=== PATIENT | male | born 1975 | race Caucasian/White ===

== ENCOUNTER → 2017-10-29 | Outpatient (CLI) | payer MEDICARE, MEDICAID ==
[~2017-10-29] MED LIST: ALLERGY SHOTS; AMO500 PO; AMOX875T60 PO; ASC500 PO; ASCO500C8 PO; AZIT-1 PO; AZIT1PAC21 PO; AZIT500T47 PO; AZIT600T13 PO; CALC-797 PO; CALC400T65 PO; CALC500T76 PO; CEF300 PO; CEFU250 PO; CETY454C2 TP; CLIN25GE TP; CLOT45CR VG; DES5 PO; ERYT30GE12 OP; FERR240T18 PO; FLU20 PO; FLUO-202 PO; GUALA600 PO; HYDR28.415 TP; LEV112 PO; LEV137 PO; LEV500 PO; LOPE1TAB55 PO; LOR10 PO; LORA-802 PO; LORA-941 PO; MOMR; MOMR ENA; OCUSOFT TOP; OLO2ODPT OD; OLOOD OP; OMEP-218 PO; OXYGEN INH; PRAV20TA65 PO; SYSTANODPT OP; TETR-30 PO; TRI05T TOP; VITA-192 PO; VITE400 PO; [UNRECOGNIZED DRUG - CODE] IR; [UNRECOGNIZED DRUG - CODE] PO; [UNRECOGNIZED DRUG - CODE] TP; [UNRECOGNIZED DRUG - CODE] TP; [UNRECOGNIZED DRUG - CODE] TP
--- NOTE | 2017-10-29 14:53 | RADIOLOGY IMAGING REPORT ---
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 COMPARISON: 04/23/2016. FINDINGS: Cardiomediastinal silhouette and pulmonary vessels within normal limits. There is no focal infiltrate or lobar consolidation. There is no pneumothorax or pleural effusion. No nodule. Upper abdomen is unremarkable. No acute bony abnormality. IMPRESSION: 1. No indication of acute or active disease. Report Dictated By: Mark Cerda at 10/29/2017 2:47 PM Report E-Signed By: Mark Cerda at 10/29/2017 2:49 PM WSN:[id number]
== END ==
LOC: RAD 14:09
PROVIDERS: ATTEND Nurse Practitioner Family
DX: R76.11 Nonspecific reaction to tuberculin skin test without active tuberculosis (principal)
CPT/HCPCS: 71046

== ENCOUNTER → 2018-04-01 | Outpatient (CLI) | payer MEDICARE, MEDICAID ==
--- NOTE | 2018-04-01 12:16 | RADIOLOGY IMAGING REPORT ---
FACILITY: [facility] - [place] PATIENT NAME: Nikita Andrews : 1975 MR: [id number] V: [id number] EXAM DATE: ORDERING PHYSICIAN: NICOLETTE SANABRIA TECHNOLOGIST: Location: [facility] - [place] Patient: Nikita Andrews : 1975 Visit/Account:[id number] Date of Sevice: 04/01/2018 Exam type: SOFT TISSUE NON-SPECIFIC History: Patient describes left-sided chest wall pain laterally with no palpable lump Comparison: None. Findings: The entire left breast was imaged sonographically revealing no abnormality cystic or solid. Several comparison views in the 9:00 position of the right breast were also obtained revealing no abnormality . Clinical follow-up recommended for patient's left chest wall pain IMPRESSION: 1. No sonographic abnormality was identified over the left breast to account for patient's left ches t wall pain. Clinical follow-up recommended if patient's symptoms persist CT may be helpful for furt her evaluation Report Dictated By: Britni Belcher MD at 04/01/2018 12:11 PM Report E-Signed By: Britni Belcher MD at 04/01/2018 12:13 PM WSN:[id number]
== END ==
LOC: US 11:09
PROVIDERS: ATTEND Nurse Practitioner Family
DX: R07.9 Chest pain, unspecified (principal)

== ENCOUNTER 2018-11-05 16:56 | Emergency (ER) | payer MEDICARE, MEDICAID ==
[~2018-11-05 16:56] MED LIST changes: +CLIN30GE15 TP
--- NOTE | 2018-11-05 17:02 | ER Report ---
History and Physical Time Seen By MD: 17:02 (GREG EATON MD) HPI/ROS CHIEF COMPLAINT: Chest pain HISTORY OF PRESENT ILLNESS: Patient is pleasant but somewhat of a poor historian secondary to diagnosis of trisomy 21. 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 The reason for the visit today is that around 4:20 PM today he started developing chest pain with radiation to the jaw and some subjective shortness of breath. Patient does have a history of pericarditis, pneumonia as well as aortic insufficiency in the past. Patient states pain is approximately 6 out of 10 in intensity. He reports some very mild nausea. No history of fevers or coughs. No recent travel or antibiotic use. Patient is a nonsmoker. REVIEW OF SYSTEMS: Constitutional: No fever, no chills. Eyes: No discharge. ENT: No sore throat. Cardiovascular: chest pain, no palpitations. Respiratory: No cough, mild shortness of breath Gastrointestinal: No abdominal pain, no vomiting. Mild nausea Genitourinary: No hematuria. Musculoskeletal: No back pain. Skin: No rashes. Neurological: No headache. (GREG EATON MD) Allergies: Coded Allergies: grass pollen-sweet vernal, standardized (Verified Allergy, Unknown, 11/05/18) acetaminophen (Verified Adverse Reaction, Mild, LIVER PROBLEMS, 11/05/18) ibuprofen (Verified Adverse Reaction, Mild, LIVER PROBLEMS, 11/05/18) Uncoded Allergies: CATS (Allergy, Mild, 09/14/10) MOLDS (Allergy, Mild, 09/14/10) TREES (Allergy, Mild, 09/14/10) WEEDS (Allergy, Mild, 09/14/10) Home Meds Active Scripts Clindamycin Phosphate (CLINDAMYCIN PHOSPHATE) 30 Gm Gel..gram., 1 TARSHA TP DIRECTED for 30 Days, #1 TUBE 2 Refills Prov:GENESIS NAPIER NPC 06/10/18 Amoxicillin (AMOXICILLIN) 875 Mg Tablet, 1 TAB PO Q12H, #14 TAB TAKE ONE TABLET BY MOUTH EVERY 12 HOURS Prov:ROBERTO ROSALES CERTIFIED FIRST ASSISTANT 07/22/15 Reported Medications Esomeprazole Magnesium (NEXIUM) 40 Mg Capsule.dr, 1 CAP PO QDAY, CAP 11/05/18 Eyelid Cleanser Combination #5 (OCUSOFT LID SCRUB) 1 Each Med..pad, 1 EACH TP 11/05/18 Guaifenesin (MUCINEX) 600 Mg Tablet.er, 600 MG PO 11/05/18 Montelukast Sodium (SINGULAIR) 10 Mg Tablet, 1 TAB PO QDAY, TAB 11/05/18 Fluticasone Prop 50 Mcg Ns (FLONASE 50 MCG NS) 16 Gm [place].susp, 2 SPRAYS NS QDAY, BOT 11/05/18 Fluticasone Furoate (Arnuity Ellipta) 50 Mcg Blst.w.dev 11/05/18 Olopatadine (PATADAY) 0.05 Ml Soln, 0.05 ML OD QDAY 07/24/14 Hydrocortisone/Aloe Vera (HYDROCORTISONE 1% OINTMENT) 28 Gm Oint...g., 28 GM TP PRN 07/24/14 Levothyroxine Sodium (LEVOTHYROXINE SODIUM) 0.112 Mg Tab, 0.112 MG PO QDAY, TAB TAKE ONE TABLET BY MOUTH IN THE MORNING ON AN EMPTY STOMACH AT LEAST 30 MINUTES BEFORE FOOD 07/24/14 Ferrous Gluconate (FERROUS GLUCONATE) 240 Mg Tablet, 240 MG PO BID 07/24/14 Erythromycin Base/Ethanol (ERYTHROMYCIN 2% GEL) 30 Gm Gel..gram., 30 GM OP QDAY 07/24/14 Clindamycin Phos/Benzoyl Perox (CLINDAMYCIN-BENZOYL PEROX GEL) 25 Gm Gel..gram., 25 GM TP QDAY 07/24/14 Cetyl Alc/Stearyl Alc/Pg/Sls (CETAPHIL CREAM) 454 Gm Cream..g., 454 GM TP QDAY 07/24/14 Calcium Carbonate/Vitamin D3 (CALCIUM 600 + VIT D CAPLET) 1 Each Tablet, 1 EACH PO QDAY 07/24/14 Loperamide Hcl/Simethicone (IMODIUM MULTI-SYMPTOM REL CPLT) Unknown Strength Tablet, PO PRN 07/24/14 Acetic Acid (ACETIC ACID) 1,000 Ml Irrig.soln, 1000 ML IR BID 07/24/14 Pravastatin Sodium (Pravachol) 20 Mg Tablet, 20 MG PO QHS 12/26/12 Loratadine (Claritin) 10 Mg Tab, 10 MG PO QDAY 08/16/11 Oxygen (Oxygen) 2 L Inha, 2 L INH NOC 09/14/10 Antiseptic Solution (Ocusoft Lid Scrub) 1 Ea Pad, 1 EA TOP QDAY 09/14/10 Vitamin E (Vitamin E) 400 Unit Capsule, 400 UNIT PO BID 09/14/10 Mometasone Furoate (Nasonex) 17 Gm [place], 2 SPRAY NA QDAY SPRAY 2 SPRAYS IN EACH NOSTRIL, USE NEEDED 09/14/10 Fluoxetine Hcl (Prozac) 20 Mg Capsule, 40 MG PO QDAY 09/14/10 Ascorbic Acid (Vitamin C) 500 Mg Tab, 500 MG PO QDAY 09/14/10 Discontinued Reported Medications Omeprazole Magnesium (Prilosec Otc) 20 Mg Tablet.dr, 20 MG PO QDAY 12/26/12 Past Medical/Surgical History Patient has a past medical history Down's syndrome, aortic insufficiency, hypercholesterolemia, obstructive sleep apnea, pneumonia, GERD, fractures, pancreatitis, hypothyroidism, eczema, depression. Patient has no significant past surgical history. (GREG EATON MD) Hx Smoking: No Smoking Status: Never Smoker Exposure to Second Hand Smoke?: No Hx Substance Use Disorder: No Hx Alcohol Use: No (GREG EATON MD) Constitutional Vital Sign - Last 24 Hours 11/05/18 11/05/18 11/05/18 11/05/18 16:59 17:01 17:11 17:26 Pulse 74 73 ??? Resp 20 23 B/P (MAP) 119/83 119/83 (95) Pulse Ox 95 95 O2 Delivery Room Air 11/05/18 11/05/18 11/05/18 11/05/18 17:30 17:41 17:56 18:00 Pulse 75 78 Resp 19 24 B/P (MAP) 105/78 (87) 104/68 (80) Pulse Ox 92 95 11/05/18 11/05/18 11/05/18 11/05/18 18:11 18:26 18:41 18:46 Pulse 76 74 ??? 68 Pulse Ox 91 88 92 90 11/05/18 11/05/18 11/05/18 11/05/18 19:01 19:03 19:16 19:30 Pulse 76 74 B/P (MAP) 102/76 (85) 98/76 (83) 1/25/19 1/25/19 1/25/19 1/25/19 19:31 19:36 19:51 20:00 Pulse 84 82 85 Resp 24 18 16 B/P (MAP) ???/??? (1665) Pulse Ox 91 88 93 11/05/18 11/05/18 11/05/18 20:06 20:21 20:36 Pulse 89 81 ??? Resp 13 18 B/P (MAP) 97/64 (75) Pulse Ox 83 ([facility]) Physical Exam General/Constitutional: Patient is awake, alert, nontoxic and in no acute respiratory distress. Body features consistent with trisomy 21 Head: Normocephalic and atraumatic. Eyes: Conjunctival clear, Pupils are equal and reactive to light. Ears:External canals are clear. Tympanic membranes are clear with normal landmarks and light reflex. Nares: No rhinorrhea or bleeding. Turbinates are pink and moist. Oropharyngeal: Mucous membranes are moist. There is no pharyngeal erythema or exudate. Uvula is midline and symmetrical. Neck: Supple, no adenopathy. Cardiovascular: Heart is regular rate and rhythm without audible murmurs, rubs or gallops. Pulmonary: Lungs are clear to auscultation bilaterally. There are no wheezes, rales, or rhonchi. Chest rise is symmetrical Abdomen: Soft, nontender, no guarding or peritoneal signs. Extremities: No gross deformities, No peripheral cyanosis. Able to move all 4 extremities. Neuro: Alert Skin: No rashes, skin is warm dry and well perfused. (GREG EATON MD) Medical Decision Making Data Points Result Diagram: 11/05/18 1705 11/05/18 1705 Laboratory Hematology Test 11/05/18 17:05 11/05/18 19:53 Red Blood Count 4.92 M/uL (4.00-5.60) Mean Corpuscular Volume 101.1 fL (80.0-96.0) Mean Corpuscular Hemoglobin 34.8 pg (26.0-33.0) Mean Corpuscular Hemoglobin Concent 34.4 g/dL (32.0-36.0) Red Cell Distribution Width 13.7 % (11.5-14.5) Mean Platelet Volume 8.5 fL (7.2-11.1) Neutrophils (%) (Auto) 75.8 % (39.4-72.5) Lymphocytes (%) (Auto) 14.3 % (17.6-49.6) Monocytes (%) (Auto) 7.5 % (4.1-12.4) Eosinophils (%) (Auto) 1.7 % (0.4-6.7) Basophils (%) (Auto) 0.7 % (0.3-1.4) Nucleated RBC Relative Count (auto) 0.1 /100WBC Neutrophils # (Auto) 8.1 K/uL (2.0-7.4) Lymphocytes # (Auto) 1.5 K/uL (1.3-3.6) Monocytes # (Auto) 0.8 K/uL (0.3-1.0) Eosinophils # (Auto) 0.2 K/uL (0.0-0.5) Basophils # (Auto) 0.1 K/uL (0.0-0.1) Nucleated RBC Absolute Count (auto) 0.01 K/uL Prothrombin Time 12.1 seconds (12.0-14.4) Prothromb Time International Ratio 0.90 Activated Partial Thromboplast Time 31 seconds (23-35) Sodium Level 142 mmol/L (137-145) Potassium Level 3.7 mmol/L (3.5-5.0) Chloride Level 108 mmol/L (98-107) Carbon Dioxide Level 27 mmol/L (22-30) Blood Urea Nitrogen 9 mg/dl (9-21) Creatinine 0.70 mg/dl (0.66-1.25) Glomerular Filtration Rate Calc > 60.0 Random Glucose 79 mg/dl (75-110) Calcium Level 9.0 mg/dl (8.4-10.2) Total Bilirubin 0.3 mg/dl (0.2-1.3) Aspartate Amino Transf (AST/SGOT) 34 U/L (0-35) Alanine Aminotransferase (ALT/SGPT) 39 U/L (0-56) Alkaline Phosphatase 76 U/L (0-126) B-Type Natriuretic Peptide 27 pg/ml (0-100) Total Protein 8.3 g/dl (6.3-8.2) Albumin 4.4 g/dl (3.5-5.0) Troponin I < 0.012 ng/ml Chemistry Test 11/05/18 17:05 11/05/18 19:53 White Blood Count 10.7 k/uL (4.5-11.0) Red Blood Count 4.92 M/uL (4.00-5.60) Hemoglobin 17.1 g/dL (14.0-18.0) Hematocrit 49.7 % (42.0-52.0) Mean Corpuscular Volume 101.1 fL (80.0-96.0) Mean Corpuscular Hemoglobin 34.8 pg (26.0-33.0) Mean Corpuscular Hemoglobin Concent 34.4 g/dL (32.0-36.0) Red Cell Distribution Width 13.7 % (11.5-14.5) Platelet Count 282 K/uL (150-450) Mean Platelet Volume 8.5 fL (7.2-11.1) Neutrophils (%) (Auto) 75.8 % (39.4-72.5) Lymphocytes (%) (Auto) 14.3 % (17.6-49.6) Monocytes (%) (Auto) 7.5 % (4.1-12.4) Eosinophils (%) (Auto) 1.7 % (0.4-6.7) Basophils (%) (Auto) 0.7 % (0.3-1.4) Nucleated RBC Relative Count (auto) 0.1 /100WBC Neutrophils # (Auto) 8.1 K/uL (2.0-7.4) Lymphocytes # (Auto) 1.5 K/uL (1.3-3.6) Monocytes # (Auto) 0.8 K/uL (0.3-1.0) Eosinophils # (Auto) 0.2 K/uL (0.0-0.5) Basophils # (Auto) 0.1 K/uL (0.0-0.1) Nucleated RBC Absolute Count (auto) 0.01 K/uL Prothrombin Time 12.1 seconds (12.0-14.4) Prothromb Time International Ratio 0.90 Activated Partial Thromboplast Time 31 seconds (23-35) Glomerular Filtration Rate Calc > 60.0 Calcium Level 9.0 mg/dl (8.4-10.2) Total Bilirubin 0.3 mg/dl (0.2-1.3) Aspartate Amino Transf (AST/SGOT) 34 U/L (0-35) Alanine Aminotransferase (ALT/SGPT) 39 U/L (0-56) Alkaline Phosphatase 76 U/L (0-126) B-Type Natriuretic Peptide 27 pg/ml (0-100) Total Protein 8.3 g/dl (6.3-8.2) Albumin 4.4 g/dl (3.5-5.0) Troponin I < 0.012 ng/ml Coagulation Test 11/05/18 17:05 Prothrombin Time 12.1 seconds Prothromb Time International Ratio 0.90 Activated Partial Thromboplast Time 31 seconds (GREGORY LI MD) EKG/Imaging EKG Interpretation EKG shows normal sinus rhythm. Monitor Interpretation: Normal Sinus Rhythm (GREG EATON MD) EKG Interpretation 12 lead EKG: Repeat EKG at 1952 hrs. Rhythm: Normal sinus rhythm, rate 75 [place]: normal QRS: normal ST segments: Nonspecific T-wave flattening Unchanged from previous EKG today Imaging CHEST PA LAT HISTORY: Chest Pain COMPARISON: 10/29/2017 FINDINGS: Cardiomediastinal contours: Normal Lungs and pleura: Normal Bones/soft tissues: Normal Other findings: None significant IMPRESSION: 1. No acute cardiopulmonary disease. No change. Report Dictated By: Fer Carmen MD at 11/05/2018 6:02 PM (GREGORY LI MD) ED Course/Re-evaluation Clinical Indication for ER IV: IV Access ED Course 11/05/2018 5:16:12 pm plan at this time will be cardiac workup with Dr. razo at 4 hour window. We'll give aspirin at this time. (GREG EATON MD) ED Course I assumed care of this patient from Dr. Eaton this afternoon. Repeat EKG and troponin are negative. Patient did have some itching and feeling hot, possibly due to adhesive. Benadryl help the symptoms, 25 mg IV. Decision to Disposition Date: Nov 05, 2018 Decision to Disposition Time: 20:34 (GREGORY LI MD) Depart Departure Latest Vital Signs Vital Signs Date Time Temp Pulse Resp B/P (MAP) Pulse Ox O2 Delivery O2 Flow Rate FiO2 11/05/18 20:36 ??? 97/64 (75) 11/05/18 20:21 18 11/05/18 20:06 83 11/05/18 16:59 Room Air (GREGORY LI MD) Impression: Primary Impression: Anterior chest wall pain Condition: Improved Disposition: HOME OR SELF-CARE Referrals: NICOLETTE SANABRIA (PCP) Patient Instructions: Chest Wall Pain (ED) Additional Instructions: Chest pain today does not appear to be a heart attack, labs and EKG were normal. No changes in medications at this time. Follow-up with primary care next week. GREG EATON MD Nov 05, 2018 17:02 GREGORY LI MD Nov 05, 2018 18:09
[2018-11-05] MEDS ORDERED: ASPIRIN 81 MG CHEW PO ONE (17:10)
--- NOTE | 2018-11-05 17:13 | EKG ---
FACILITY: [facility] PATIENT NAME: KARO CA : [id number] MR: [id number] V: [id number] EXAM DATE: ORDERING PHYSICIAN: GREG FRANKLIN TECHNOLOGIST: Test Reason : CP Blood Pressure : / mmHG Vent. Rate : 068 BPM Atrial Rate : 068 BPM P-R Int : 142 ms QRS Dur : 086 ms QT Int : 418 ms P-R-T Axes : 046 044 058 degrees QTc Int : 444 ms Normal sinus rhythm Normal ECG When compared with ECG of 23-APR-2016 20:03, No significant change was found Confirmed by MICHAEL DREW ([id number]) on 11/05/2018 8:02:20 PM Referred By: Confirmed By:MICHAEL DREW
[2018-11-05 17:19] LABS: PLATELET COUNT, AUTOMATED 282 K/uL (150-450)
[2018-11-05] MEDS ORDERED: fentaNYL CITR 100 MCG/2 ML AMP IVP ONE (17:20)
[2018-11-05 17:28] LABS: INR 0.9
[2018-11-05] MEDS ORDERED: FLUT50BL (18:02)
[2018-11-05] MEDS ORDERED: FLUT16SP19 NS (18:02)
--- NOTE | 2018-11-05 18:05 | RADIOLOGY IMAGING REPORT ---
FACILITY: [facility] PATIENT NAME: Nikita Andrews : 1975 MR: [id number] V: [id number] EXAM DATE: ORDERING PHYSICIAN: GREG FRANKLIN TECHNOLOGIST: Location: [facility] [place] Patient: Nikita Andrews : 1975 Visit/Account:[id number] Date of Sevice: 11/05/2018 CHEST PA LAT HISTORY: Chest Pain COMPARISON: 10/29/2017 FINDINGS: Cardiomediastinal contours: Normal Lungs and pleura: Normal Bones/soft tissues: Normal Other findings: None significant IMPRESSION: 1. No acute cardiopulmonary disease. No change. Report Dictated By: Fer Carmen MD at 11/05/2018 6:02 PM Report E-Signed By: Fer Carmen MD at 11/05/2018 6:02 PM WSN:[id number]
[2018-11-05] MEDS ORDERED: diphenhydrAMINE 50 MG/ML VIAL IVP ONE (19:10)
[2018-11-05] MEDS ORDERED: EYEL1MED TP (20:24)
[2018-11-05] MEDS ORDERED: MONT10TA PO (20:24)
[2018-11-05] MEDS ORDERED: GUAI600T57 PO (20:24)
[2018-11-05] MEDS ORDERED: ESOM40CA42 PO (20:24)
[2018-11-05 20:36] VITALS: BP 97/64
--- NOTE | 2018-11-05 21:04 | EKG ---
FACILITY: [facility] - [place] PATIENT NAME: KARO CA : [id number] MR: [id number] V: [id number] EXAM DATE: ORDERING PHYSICIAN: GREGORY LI TECHNOLOGIST: ANITHA Test Reason : CHEST PAIN Blood Pressure : / mmHG Vent. Rate : 075 BPM Atrial Rate : 075 BPM P-R Int : 142 ms QRS Dur : 082 ms QT Int : 394 ms P-R-T Axes : 037 058 062 degrees QTc Int : 439 ms Normal sinus rhythm Normal ECG When compared with ECG of 05-NOV-2018 17:00, No significant change was found Confirmed by MICHAEL DREW ([id number]) on 11/06/2018 6:46:40 AM Referred By: Confirmed By:MICHAEL DREW
== END 2018-11-05 20:41 | disposition home or self-care (01) ==
LOC: ER 17:06
DX: R07.89 Other chest pain (principal)
CPT/HCPCS: 71046; 83880; 84484; 85025; 85610; 85730; 93005; 96374; 96375; 99284; A9270; J1200; J3010; 82040; 82247; 82310; 82374; 82435; 82565; 82947; 84075; 84132; 84155; 84295; 84450; 84460; 84520

== ENCOUNTER 2018-11-23 15:12 | Emergency (ER) | payer MEDICARE, MEDICAID ==
[~2018-11-23 15:12] MED LIST changes: +ESOM40CA42 PO; +EYEL1MED TP; +FLUT16SP19 NS; +FLUT50BL; +GUAI600T57 PO; +MONT10TA PO
--- NOTE | 2018-11-23 15:22 | ER Report ---
History and Physical Time Seen By MD: 15:22 HPI/ROS CHIEF COMPLAINT: Chest pain, headache, abdominal pain HISTORY OF PRESENT ILLNESS: 43-year-old male patient presents to emergency room with complaint of chest pain, abdominal pain and headache. Patient states that this started just today. Patient denies having any nausea, vomiting or diarrhea. He does state the pain in the stomach is in the upper stomach. He states he did eat some [employer] today. Patient has not had a fever. Patient is a resident of the [facility] and has a history of trisomy 21. Caregiver's state that in route the patient was stating that he did not feel well like to see the doctor. He states that his abnormality for him. They also state that he was stating that he was af raid to . Does state that when they're coming over that he was complaining about his head hurting really bad. REVIEW OF SYSTEMS: Respiratory: No cough, no dyspnea. Cardiovascular: As noted above Gastrointestinal: No vomiting, no abdominal pain. Musculoskeletal: No back pain. Allergies: Coded Allergies: grass pollen-sweet vernal, standardized (Verified Allergy, Unknown, 11/05/18) acetaminophen (Verified Adverse Reaction, Mild, LIVER PROBLEMS, 11/05/18) ibuprofen (Verified Adverse Reaction, Mild, LIVER PROBLEMS, 11/05/18) Uncoded Allergies: CATS (Allergy, Mild, 09/14/10) MOLDS (Allergy, Mild, 09/14/10) TREES (Allergy, Mild, 09/14/10) WEEDS (Allergy, Mild, 09/14/10) Home Meds Active Scripts Clindamycin Phosphate (CLINDAMYCIN PHOSPHATE) 30 Gm Gel..gram., 1 TARSHA TP DIRECTED for 30 Days, #1 TUBE 2 Refills Prov:GENSEIS NAPIER NPC 06/10/18 Amoxicillin (AMOXICILLIN) 875 Mg Tablet, 1 TAB PO Q12H, #14 TAB TAKE ONE TABLET BY MOUTH EVERY 12 HOURS Prov:ROBERTO ROSALES [employer] 07/22/15 Reported Medications Esomeprazole Magnesium (NEXIUM) 40 Mg Capsule.dr, 1 CAP PO QDAY, CAP 11/05/18 Eyelid Cleanser Combination #5 (OCUSOFT LID SCRUB) 1 Each Med..pad, 1 EACH TP 11/05/18 Guaifenesin (MUCINEX) 600 Mg Tablet.er, 600 MG PO 11/05/18 Montelukast Sodium (SINGULAIR) 10 Mg Tablet, 1 TAB PO QDAY, TAB 11/05/18 Fluticasone Prop 50 Mcg Ns (FLONASE 50 MCG NS) 16 Gm [place].susp, 2 SPRAYS NS QDAY, BOT 11/05/18 Fluticasone Furoate (Arnuity Ellipta) 50 Mcg Blst.w.dev 11/05/18 Olopatadine (PATADAY) 0.05 Ml Soln, 0.05 ML OD QDAY 07/24/14 Hydrocortisone/Aloe Vera (HYDROCORTISONE 1% OINTMENT) 28 Gm Oint...g., 28 GM TP PRN 07/24/14 Levothyroxine Sodium (LEVOTHYROXINE SODIUM) 0.112 Mg Tab, 0.112 MG PO QDAY, TAB TAKE ONE TABLET BY MOUTH IN THE MORNING ON AN EMPTY STOMACH AT LEAST 30 MINUTES BEFORE FOOD 07/24/14 Ferrous Gluconate (FERROUS GLUCONATE) 240 Mg Tablet, 240 MG PO BID 07/24/14 Erythromycin Base/Ethanol (ERYTHROMYCIN 2% GEL) 30 Gm Gel..gram., 30 GM OP QDAY 07/24/14 Clindamycin Phos/Benzoyl Perox (CLINDAMYCIN-BENZOYL PEROX GEL) 25 Gm Gel..gram., 25 GM TP QDAY 07/24/14 Cetyl Alc/Stearyl Alc/Pg/Sls (CETAPHIL CREAM) 454 Gm Cream..g., 454 GM TP QDAY 07/24/14 Calcium Carbonate/Vitamin D3 (CALCIUM 600 + VIT D CAPLET) 1 Each Tablet, 1 EACH PO QDAY 07/24/14 Loperamide Hcl/Simethicone (IMODIUM MULTI-SYMPTOM REL CPLT) Unknown Strength Tablet, PO PRN 07/24/14 Acetic Acid (ACETIC ACID) 1,000 Ml Irrig.soln, 1000 ML IR BID 07/24/14 Pravastatin Sodium (Pravachol) 20 Mg Tablet, 20 MG PO QHS 12/26/12 Loratadine (Claritin) 10 Mg Tab, 10 MG PO QDAY 08/16/11 Oxygen (Oxygen) 2 L Inha, 2 L INH NOC 09/14/10 Antiseptic Solution (Ocusoft Lid Scrub) 1 Ea Pad, 1 EA TOP QDAY 09/14/10 Vitamin E (Vitamin E) 400 Unit Capsule, 400 UNIT PO BID 09/14/10 Mometasone Furoate (Nasonex) 17 Gm [place], 2 SPRAY NA QDAY SPRAY 2 SPRAYS IN EACH NOSTRIL, USE NEEDED 09/14/10 Fluoxetine Hcl (Prozac) 20 Mg Capsule, 40 MG PO QDAY 09/14/10 Ascorbic Acid (Vitamin C) 500 Mg Tab, 500 MG PO QDAY 09/14/10 Past Medical/Surgical History Patient has a past medical history of Down syndrome, aortic insufficiency, pericarditis, hyperlipidemia, obstructive sleep apnea, pneumonia, reflux, nasal fracture, prone to ear infections, pancreatitis, hypothyroidism, depression. Patient has no pertinent surgical history. Reviewed Nurses Notes: Yes Hx Smoking: No Smoking Status: Never Smoker Exposure to Second Hand Smoke?: No Hx Substance Use Disorder: No Hx Alcohol Use: No Constitutional Vital Sign - Last 24 Hours 11/23/18 11/23/18 11/23/18 11/23/18 15:17 15:22 16:02 16:04 Temp 98.2 Pulse 75 Resp 20 B/P (MAP) 108/74 117/75 (89) 121/58 (79) Pulse Ox 93 O2 Delivery Room Air O2 Flow Rate 2.0 11/23/18 11/23/18 11/23/18 11/23/18 16:05 16:12 16:30 16:42 Pulse 98 94 B/P (MAP) 116/64 (81) 117/71 (86) Pulse Ox 95 96 Physical Exam General Appearance: The patient is alert, has no immediate need for airway protection and no current signs of toxicity. Respiratory: Chest is non tender, lungs are clear to auscultation. Cardiac: regular rate and rhythm Gastrointestinal: Abdomen is soft and tender in the epigastric region, no masses, bowel sounds normal. Musculoskeletal: Neck: Neck is supple and non tender. Extremities have full range of motion and are non tender. Skin: No rashes or lesions. DIFFERENTIAL DIAGNOSIS: After history and physical exam differential diagnosis was considered for chest pain including but not limited to myocardial ischemia, pericarditis pulmonary embolus, chest wall pain, pleural inflammation and pulmonary infectious causes. Also included in the differentials is headache including but not limited to subarachnoid hemorrhage, migraine headache, tension headache and infectious causes such as meningitis, pharyngitis and sinusitis. As well as abdominal pain including but not limited to appendicitis, cholecystitis, gastritis and urinary tract infection. Medical Decision Making Data Points Result Diagram: 11/23/18 1533 11/23/18 1533 Laboratory Hematology Test 11/23/18 15:33 11/23/18 16:08 11/23/18 17:36 Red Blood Count 4.82 M/uL (4.00-5.60) Mean Corpuscular Volume 102.7 fL (80.0-96.0) Mean Corpuscular Hemoglobin 34.7 pg (26.0-33.0) Mean Corpuscular Hemoglobin Concent 33.8 g/dL (32.0-36.0) Red Cell Distribution Width 13.9 % (11.5-14.5) Mean Platelet Volume 8.4 fL (7.2-11.1) Neutrophils (%) (Auto) 64.4 % (39.4-72.5) Lymphocytes (%) (Auto) 24.4 % (17.6-49.6) Monocytes (%) (Auto) 7.9 % (4.1-12.4) Eosinophils (%) (Auto) 2.0 % (0.4-6.7) Basophils (%) (Auto) 1.3 % (0.3-1.4) Nucleated RBC Relative Count (auto) 0.1 /100WBC Neutrophils # (Auto) 2.8 K/uL (2.0-7.4) Lymphocytes # (Auto) 1.1 K/uL (1.3-3.6) Monocytes # (Auto) 0.3 K/uL (0.3-1.0) Eosinophils # (Auto) 0.1 K/uL (0.0-0.5) Basophils # (Auto) 0.1 K/uL (0.0-0.1) Nucleated RBC Absolute Count (auto) 0.00 K/uL Erythrocyte Sedimentation Rate 1 mm/HOUR (0-15) D-Dimer Quantitative (PE/DVT) 0.38 ug/ml (0-0.50) Sodium Level 139 mmol/L (137-145) Potassium Level 3.8 mmol/L (3.5-5.0) Chloride Level 106 mmol/L (98-107) Carbon Dioxide Level 27 mmol/L (22-30) Blood Urea Nitrogen 11 mg/dl (9-21) Creatinine 0.80 mg/dl (0.66-1.25) Glomerular Filtration Rate Calc > 60.0 Random Glucose 50 mg/dl (75-110) Calcium Level 9.2 mg/dl (8.4-10.2) Total Bilirubin 0.3 mg/dl (0.2-1.3) Aspartate Amino Transf (AST/SGOT) 39 U/L (0-35) Alanine Aminotransferase (ALT/SGPT) 49 U/L (0-56) Alkaline Phosphatase 57 U/L (0-126) Troponin I < 0.012 ng/ml Total Protein 7.8 g/dl (6.3-8.2) Albumin 4.6 g/dl (3.5-5.0) Amylase Level 69 U/L (0-110) Lipase 1309 U/L (23-300) Helicobacter pylori IgG Antibody Negative (NEGATIVE) Urine Color Colorless Urine Clarity Clear Urine pH 6.0 pH (4.8-9.5) Urine Specific [place] 1.002 Urine Protein Negative mg/dL (NEGATIVE) Urine Glucose (UA) Negative mg/dL (NEGATIVE) Urine Ketones Negative mg/dL (NEGATIVE) Urine Blood Negative (NEGATIVE) Urine Nitrite Negative (NEGATIVE) Urine Bilirubin Negative (NEGATIVE) Urine Urobilinogen Negative mg/dL (0.2-1.9) Urine Leukocyte Esterase Negative (NEGATIVE) Urine RBC None /HPF (0-2/HPF) Urine WBC <1 /HPF (0-5/HPF) Urine Squamous Epithelial Cells Few /LPF (</=FEW) Urine Bacteria Negative /HPF (NONE-FEW) Urine Mucus None /HPF (NONE-FEW) Whole Blood Glucose 82 mg/DL (75-110) Chemistry Test 11/23/18 15:33 11/23/18 16:08 11/23/18 17:36 White Blood Count 4.4 k/uL (4.5-11.0) Red Blood Count 4.82 M/uL (4.00-5.60) Hemoglobin 16.7 g/dL (14.0-18.0) Hematocrit 49.6 % (42.0-52.0) Mean Corpuscular Volume 102.7 fL (80.0-96.0) Mean Corpuscular Hemoglobin 34.7 pg (26.0-33.0) Mean Corpuscular Hemoglobin Concent 33.8 g/dL (32.0-36.0) Red Cell Distribution Width 13.9 % (11.5-14.5) Platelet Count 258 K/uL (150-450) Mean Platelet Volume 8.4 fL (7.2-11.1) Neutrophils (%) (Auto) 64.4 % (39.4-72.5) Lymphocytes (%) (Auto) 24.4 % (17.6-49.6) Monocytes (%) (Auto) 7.9 % (4.1-12.4) Eosinophils (%) (Auto) 2.0 % (0.4-6.7) Basophils (%) (Auto) 1.3 % (0.3-1.4) Nucleated RBC Relative Count (auto) 0.1 /100WBC Neutrophils # (Auto) 2.8 K/uL (2.0-7.4) Lymphocytes # (Auto) 1.1 K/uL (1.3-3.6) Monocytes # (Auto) 0.3 K/uL (0.3-1.0) Eosinophils # (Auto) 0.1 K/uL (0.0-0.5) Basophils # (Auto) 0.1 K/uL (0.0-0.1) Nucleated RBC Absolute Count (auto) 0.00 K/uL Erythrocyte Sedimentation Rate 1 mm/HOUR (0-15) D-Dimer Quantitative (PE/DVT) 0.38 ug/ml (0-0.50) Glomerular Filtration Rate Calc > 60.0 Calcium Level 9.2 mg/dl (8.4-10.2) Total Bilirubin 0.3 mg/dl (0.2-1.3) Aspartate Amino Transf (AST/SGOT) 39 U/L (0-35) Alanine Aminotransferase (ALT/SGPT) 49 U/L (0-56) Alkaline Phosphatase 57 U/L (0-126) Troponin I < 0.012 ng/ml Total Protein 7.8 g/dl (6.3-8.2) Albumin 4.6 g/dl (3.5-5.0) Amylase Level 69 U/L (0-110) Lipase 1309 U/L (23-300) Helicobacter pylori IgG Antibody Negative (NEGATIVE) Urine Color Colorless Urine Clarity Clear Urine pH 6.0 pH (4.8-9.5) Urine Specific [place] 1.002 Urine Protein Negative mg/dL (NEGATIVE) Urine Glucose (UA) Negative mg/dL (NEGATIVE) Urine Ketones Negative mg/dL (NEGATIVE) Urine Blood Negative (NEGATIVE) Urine Nitrite Negative (NEGATIVE) Urine Bilirubin Negative (NEGATIVE) Urine Urobilinogen Negative mg/dL (0.2-1.9) Urine Leukocyte Esterase Negative (NEGATIVE) Urine RBC None /HPF (0-2/HPF) Urine WBC <1 /HPF (0-5/HPF) Urine Squamous Epithelial Cells Few /LPF (</=FEW) Urine Bacteria Negative /HPF (NONE-FEW) Urine Mucus None /HPF (NONE-FEW) Whole Blood Glucose 82 mg/DL (75-110) Coagulation Test 11/23/18 15:33 D-Dimer Quantitative (PE/DVT) 0.38 ug/ml Urinalysis Test 11/23/18 16:08 Urine Color Colorless Urine Clarity Clear Urine pH 6.0 pH (4.8-9.5) Urine Specific [place] 1.002 Urine Protein Negative mg/dL (NEGATIVE) Urine Glucose (UA) Negative mg/dL (NEGATIVE) Urine Ketones Negative mg/dL (NEGATIVE) Urine Blood Negative (NEGATIVE) Urine Nitrite Negative (NEGATIVE) Urine Bilirubin Negative (NEGATIVE) Urine Urobilinogen Negative mg/dL (0.2-1.9) Urine Leukocyte Esterase Negative (NEGATIVE) Urine RBC None /HPF (0-2/HPF) Urine WBC <1 /HPF (0-5/HPF) Urine Squamous Epithelial Cells Few /LPF (</=FEW) Urine Bacteria Negative /HPF (NONE-FEW) Urine Mucus None /HPF (NONE-FEW) EKG/Imaging EKG Interpretation 12 lead EKG done at 1512: Rhythm: normal sinus rhythm [place]: normal QRS: normal ST segments: normal Imaging GALLBLADDER HISTORY: elevated lipase COMPARISON: CT 11/23/2018 FINDINGS: Gallbladder: No gallstones or sludge. Positive sonographic Loco's sign. No gallbladder wall thickening or pericholecystic fluid. Bile ducts: There is no biliary ductal dilation with the CBD measuring 4 mm. Liver: Negative. Pancreas: Poorly visualized secondary to bowel gas. Right kidney: Negative. Upper abdominal aorta and IVC: Patent. Ascites: None visualized. Other findings: None significant IMPRESSION: 1. Negative for gallstones or biliary ductal dilatation. Positive sonographic Loco's sign noted of uncertain significance. 2. Suboptimal visualization the pancreas. Report Dictated By: Fer Carmen MD at 11/23/2018 6:55 PM Report E-Signed By: Fer Carmen MD at 11/23/2018 6:[address] ABDOMEN PELVIS W/ CON HISTORY: elevated lipase, abdominal pain TECHNIQUE: Axial images were obtained through the abdomen and pelvis with intravenous contrast . One of the following dose optimization techniques was utilized in the performance of this exam: automated exposure control; adjustment of the mA and/or kv according to patient size; or use of iterative reconstruction technique. Specific details can be referenced in the facility's radiology CT exam operational policy. CONTRAST: 95 mL of Isovue-300 COMPARISON: CT abdomen/pelvis without contrast 03/24/2008. FINDINGS: There is motion limiting the examination. Visualized lung bases: Negative. Hepatobiliary: Negative. Spleen: Negative. Adrenals: Negative. Pancreas: No discrete peripancreatic inflammatory change. No evidence of pseudocyst. Kidneys/ureters/bladder: Negative. Bowel/peritoneum/mesentery: Negative. Vessels: Negative. Lymph nodes: Negative. Pelvic genitourinary: Negative. Bones/body wall: Negative. Other findings: None significant IMPRESSION: 1. Motion limits this examination. No discrete CT findings to indicate pancreatitis. Report Dictated By: Fer Carmen MD at 11/23/2018 5:10 PM Report E-Signed By: Fer Carmen MD at 11/23/2018 5:16 PM ABDOMEN AP ERECT AND/OR DECUB Indication: Chest Pain Comparison: None. Findings: Large amount of stool throughout the colon is seen. There is no abdominal free air. Small bowel is normal. Lung bases are clear. IMPRESSION: Large amount of stool throughout the colon that can represent constipation in the right clinical setting. Report Dictated By: James Williamson at 11/23/2018 4:43 PM Report E-Signed By: James Williamson at 11/23/2018 4:44 PM CHEST PA LAT Indication: Chest Pain Comparison: Chest x-ray 11/05/2018. Findings: Lungs: Prominent interstitial markings are seen throughout both lungs. There is no focal airspace opacity. Slightly low lung volumes are seen. Mediastinum/pulmonary vasculature: Heart size and pulmonary vasculature are normal. Bones/soft tissues: Normal. IMPRESSION: Clear lungs. Report Dictated By: James Williamson at 11/23/2018 4:41 PM Report E-Signed By: James Clay at 11/23/2018 4:[address] scan without contrast HISTORY: Headache COMPARISONS: None TECHNIQUE: Non-contrast head CT was performed with sagittal and coronal reformations. One of the following dose optimization techniques was utilized in the performance of this exam: automated exposure control; adjustment of the mA and/or kV according to patient size; or use of iterative reconstruction techni que. Specific details can be referenced in the facility's radiology CT exam operational policy. FINDINGS: There is no intracranial hemorrhage, hydrocephalus or midline shift. The basal cisterns, franco-white differentiation, and convexity sulci are maintained. Mild motion artifact noted. Chronic bilateral globus pallidus calcification. The orbital soft tissues are normal. The mastoid air cells are clear. The paranasal sinuses are clear. The osseous structures are normal. IMPRESSION: No acute intracranial abnormality. Chronic bilateral globus pallidus calcifications which may represent idiopathic calcifications. Such calcifications can be additionally be seen in the setting of Fahr's disease or in hypercalcemic states. Report Dictated By: Raj Bello MD at 11/23/2018 4:28 PM Report E-Signed By: Raj Bello MD at 11/23/2018 4:32 PM ED Course/Re-evaluation ED Course Patient was admitted to exam room, history and physical were obtained. Differential diagnoses were considered. On examination patient had tenderness in the epigastric region, lungs are clear, heart was regular, patient had no tenderness to the anterior chest wall. With pain in the epigastric region a CBC, CMP, amylase, lipase, H. pylori, d-dimer, EKG, chest x-ray, troponin, CT scan of the head were done as well as a abdominal x-ray. Labs were unremarkable except patient did have an elevated lipase of 1300, d-dimer was negative, troponin was negative, EKG showed a normal sinus rhythm. CT scan of the head was negative, chest x-ray showed no acute cardiopulmonary processes, acute abdominal x-ray did show the patient did have large amount of stool in the colon consistent with constipation. Because of the elevated lipase a CT scan of the abdomen and pelvis was done. There was a lot of motion artifact and showed no obvious inflammation of the pancreas. I discussed the case with Dr. Dumont, hospitalist, who felt the patient could be admitted however since her no rooms in the hospital he stated that if they felt that patient could go home that he could be discharged home with strict instructions to return if pain worsens. If I felt the patient needed to be admitted that we could go ahead and board the patient here in the emergency room until room opened up tomorrow morning. He also recommended doing a ultrasound of the gallbladder to make sure there is not any gallstones or common bile duct dilation. An ultrasound was ordered of the gallbladder. The results did show that the patient had no gallstones and the common bile duct measured normally. I discussed findings with patient and his caregiver. Patient is anxious to return home. We did discuss options such as treating constipation magnesium citrate. Treating the pancreatitis with clear liquid diet, repeat labs in 2 days. They're to monitor him closely and bring him back to the emergency room if he has any worsening pain. At that time we'll go ahead and admit him. The caregiver verbalized understanding and agreement with plan. Decision to Disposition Date: Nov 23, 2018 Decision to Disposition Time: 19:38 Depart Departure Latest Vital Signs Vital Signs Date Time Temp Pulse Resp B/P (MAP) Pulse Ox O2 Delivery O2 Flow Rate FiO2 11/23/18 16:42 94 96 11/23/18 16:30 117/71 (86) 11/23/18 15:22 2.0 11/23/18 15:17 98.2 20 Room Air Impression: Primary Impression: Pancreatitis Additional Impression: Constipation Condition: Improved Disposition: HOME OR SELF-CARE Referrals: NICOLETTE SANABRIA (PCP) Patient Instructions: Pancreatitis (ED) Additional Instructions: Increase fluid intake. Get plenty of rest. Follow up with your primary care provider on or repeat labs. Clear liquid diet for the next 2 days. Return to the ER if condition worsens. Take the Mag Citrate tomorrow morning and then if needed tomorrow afternoon around 4p.m. Continue with current medications. Problem Qualifiers Primary Impression: Pancreatitis Chronicity: acute Pancreatitis type: idiopathic Acute pancreatitis complication: unspecified Qualified Codes: K85.00 - Idiopathic acute pancreatitis without necrosis or infection Additional Impression: Constipation Constipation type: unspecified constipation type Qualified Codes: K59.00 - Constipation, unspecified CLAY TSAI Nov 23, 2018 15:22
[2018-11-23] MEDS ORDERED: NS(*) 0.9% 1000 ML BAG 1,000 ML IV ONE (15:28)
[2018-11-23] MEDS ORDERED: ASPIRIN 81 MG CHEW PO ONE (15:30)
--- NOTE | 2018-11-23 15:32 | EKG ---
FACILITY: [facility] [place] PATIENT NAME: KARO CA : [id number] MR: [id number] V: [id number] EXAM DATE: ORDERING PHYSICIAN: CLAY TSAI TECHNOLOGIST: BRADFORD Vargas Reason : CP Blood Pressure : / mmHG Vent. Rate : 079 BPM Atrial Rate : 079 BPM P-R Int : 144 ms QRS Dur : 080 ms QT Int : 374 ms P-R-T Axes : 044 066 058 degrees QTc Int : 428 ms Normal sinus rhythm Normal ECG When compared with ECG of 05-NOV-2018 19:52, No significant change was found Confirmed by Saud Rodriguez ([id number]) on 11/23/2018 9:48:05 PM Referred By: NOEMI Confirmed By:Saud Maldonado
[2018-11-23 15:49] LABS: PLATELET COUNT, AUTOMATED 258 K/uL (150-450)
[2018-11-23 16:30] VITALS: BP 117/71
--- NOTE | 2018-11-23 16:38 | RADIOLOGY IMAGING REPORT ---
[place] [facility] [place] NAME: Nikita Andrews : 1975 MR: [id number] V: [id number] EXAM DATE: ORDERING PHYSICIAN: CLAY TSAI TECHNOLOGIST: Location: [facility] [place] Patient: Nikita Andrews : 1975 Visit/Account:[id number] Date of Sevice: 11/23/[address] scan without contrast HISTORY: Headache COMPARISONS: None TECHNIQUE: Non-contrast head CT was performed with sagittal and coronal reformations. One of the following dose optimization techniques was utilized in the performance of this exam: autom ated exposure control; adjustment of the mA and/or kV according to patient size; or use of iterative reconstruction technique. Specific details can be referenced in the facility's radiology CT exam ope rational policy. FINDINGS: There is no intracranial hemorrhage, hydrocephalus or midline shift. The basal cisterns, franco-white differentiation, and convexity sulci are maintained. Mild motion artifact noted. Chronic bilateral gl obus pallidus calcification. The orbital soft tissues are normal. The mastoid air cells are clear. The paranasal sinuses are clear. The osseous structures are normal . IMPRESSION: No acute intracranial abnormality. Chronic bilateral globus pallidus calcifications which may represent idiopathic calcifications. Such calcifications can be additionally be seen in the setting of Fahr's disease or in hypercalcemic stat es. Report Dictated By: Raj Bello MD at 11/23/2018 4:28 PM Report E-Signed By: Raj Bello MD at 11/23/2018 4:32 PM WSN:[id number]
[2018-11-23] MEDS ORDERED: IOPAMIDOL 61% 100 ML INFUS BTL 100 ML ONE (16:40)
--- NOTE | 2018-11-23 16:48 | RADIOLOGY IMAGING REPORT ---
FACILITY: [facility] - [place] PATIENT NAME: Nikita Andrews : 1975 MR: [id number] V: [id number] EXAM DATE: ORDERING PHYSICIAN: CLAY TSAI TECHNOLOGIST: Location: [facility] [place] Patient: Nikita Andrews : 1975 Visit/Account:[id number] Date of Sevice: 11/23/2018 CHEST PA LAT Indication: Chest Pain Comparison: Chest x-ray 11/05/2018. Findings: Lungs: Prominent interstitial markings are seen throughout both lungs. There is no focal airspace op acity. Slightly low lung volumes are seen. Mediastinum/pulmonary vasculature: Heart size and pulmonary vasculature are normal. Bones/soft tissues: Normal. IMPRESSION: Clear lungs. Report Dictated By: James Williamson at 11/23/2018 4:41 PM Report E-Signed By: James Williamson at 11/23/2018 4:43 PM WSN:[email or web address]
--- NOTE | 2018-11-23 16:49 | RADIOLOGY IMAGING REPORT ---
FACILITY: [facility] - [place] PATIENT NAME: Nikita Andresw : 1975 MR: [id number] V: [id number] EXAM DATE: ORDERING PHYSICIAN: CLAY TSAI TECHNOLOGIST: Location: [facility] Patient: Nikita Andrews : 1975 Visit/Account:[id number] Date of Sevice: 11/23/2018 ABDOMEN AP ERECT AND/OR DECUB Indication: Chest Pain Comparison: None. Findings: Large amount of stool throughout the colon is seen. There is no abdominal free air. Small bowel is normal. Lung bases are clear. IMPRESSION: Large amount of stool throughout the colon that can represent constipation in the right c linical setting. Report Dictated By: James Williamson at 11/23/2018 4:43 PM Report E-Signed By: James Williamson at 11/23/2018 4:44 PM WSN:[id number]
--- NOTE | 2018-11-23 17:21 | RADIOLOGY IMAGING REPORT ---
FACILITY: [facility] PATIENT NAME: Nikita Andrews : 1975 MR: [id number] V: [id number] EXAM DATE: ORDERING PHYSICIAN: CLAY TSAI TECHNOLOGIST: Location: [facility] Patient: Nikita Andrews : 1975 Visit/Account:[id number] Date of Sevice: 11/23/2018 CT ABDOMEN PELVIS W/ CON HISTORY: elevated lipase, abdominal pain TECHNIQUE: Axial images were obtained through the abdomen and pelvis with intravenous contrast . One of the following dose optimization techniques was utilized in the performance of this exam: automate d exposure control; adjustment of the mA and/or kv according to patient size; or use of iterative rec onstruction technique. Specific details can be referenced in the facility's radiology CT exam operati onal policy. CONTRAST: 95 mL of Isovue-300 COMPARISON: CT abdomen/pelvis without contrast 03/24/2008. FINDINGS: There is motion limiting the examination. Visualized lung bases: Negative. Hepatobiliary: Negative. Spleen: Negative. Adrenals: Negative. Pancreas: No discrete peripancreatic inflammatory change. No evidence of pseudocyst. Kidneys/ureters/bladder: Negative. Bowel/peritoneum/mesentery: Negative. Vessels: Negative. Lymph nodes: Negative. Pelvic genitourinary: Negative. Bones/body wall: Negative. Other findings: None significant IMPRESSION: 1. Motion limits this examination. No discrete CT findings to indicate pancreatitis. Report Dictated By: Fer Carmen MD at 11/23/2018 5:10 PM Report E-Signed By: Fer Carmen MD at 11/23/2018 5:16 PM WSN:[id number]
--- NOTE | 2018-11-23 19:01 | RADIOLOGY IMAGING REPORT ---
[place] [facility] [place] NAME: Nikita Andrews : 1975 MR: [id number] V: [id number] EXAM DATE: ORDERING PHYSICIAN: CLAY TSAI TECHNOLOGIST: Location: [facility] Patient: Nikita Andrews : 1975 Visit/Account:[id number] Date of Sevice: 11/23/2018 GALLBLADDER HISTORY: elevated lipase COMPARISON: CT 11/23/2018 FINDINGS: Gallbladder: No gallstones or sludge. Positive sonographic Loco's sign. No gallbladder wall thicke herman or pericholecystic fluid. Bile ducts: There is no biliary ductal dilation with the CBD measuring 4 mm. Liver: Negative. Pancreas: Poorly visualized secondary to bowel gas. Right kidney: Negative. Upper abdominal aorta and IVC: Patent. Ascites: None visualized. Other findings: None significant IMPRESSION: 1. Negative for gallstones or biliary ductal dilatation. Positive sonographic Loco's sign noted o f uncertain significance. 2. Suboptimal visualization the pancreas. Report Dictated By: Fer Carmen MD at 11/23/2018 6:55 PM Report E-Signed By: Fer Carmen MD at 11/23/2018 6:57 PM WSN:[id number]
[2018-11-23] MEDS ORDERED: MAGNESIUM CITRATE 300 ML BTL PO ONE (19:35)
== END 2018-11-23 19:54 | disposition home or self-care (01) ==
LOC: ER 15:30
DX: K85.00 Idiopathic acute pancreatitis without necrosis or infection (principal); K59.00 Constipation, unspecified
CPT/HCPCS: 36416; 70450; 71046; 74019; 74177; 76705; 81001; 82150; 82948; 83690; 84484; 85025; 85379; 85651; 86677; 93005; 96360; 99284; A9270; J7030; Q9967; 82040; 82247; 82310; 82374; 82435; 82565; 82947; 84075; 84132; 84155; 84295; 84450; 84460; 84520

== ENCOUNTER → 2018-11-30 | Outpatient (CLI) | payer MEDICARE, MEDICAID | LOC: US 00:52 | PROVIDERS: ATTEND Nurse Practitioner Family | DX: R07.9 Chest pain, unspecified (principal); R09.02 Hypoxemia | CPT/HCPCS: 93306 ==

== ENCOUNTER 2019-03-10 00:56 | Day surgery (SDC) | payer MEDICARE, MEDICAID ==
[~2019-03-10] VITALS: Ht 149.9 cm; Wt 55.8 kg
[2019-03-10] VITALS (7 sets, daily range): BP systolic 80–109; BP diastolic 52–70
[~2019-03-10 00:56] MED LIST changes: +BACOUD TP; +DOXY-179 PO; +KETO120S14 TP; +LEVO-3 PO; +LOPE-84 PO; +MU V PO; +OMEG-11 PO; +VITA-200 PO; +[UNRECOGNIZED DRUG - CODE] PO
[2019-03-10] MEDS ORDERED: PROPOFOL EMUL(*) 10MG/ML 20 ML 40 ML ONE (08:16)
[2019-03-10] MEDS ORDERED: LIDOCAINE MPF 1% 5 ML VIAL ONE (08:16)
[2019-03-10] MEDS ORDERED: NORMOSOL R SOLN(*) 1000 ML BAG 1,000 ML IV PRN (08:30)
[2019-03-10] MEDS ORDERED: LIDOCAINE/SOD BICARB 8.4% SYR ID ONE (08:30)
[2019-03-11] MEDS ORDERED: KETO120S14 TP (09:39)
== END 2019-03-10 10:33 | disposition home or self-care (01) ==
LOC: OR 00:56
PROVIDERS: ATTEND Internal Medicine Gastroenterology
DX: K29.70 Gastritis, unspecified, without bleeding (principal); K20.9 Esophagitis, unspecified
CPT/HCPCS: 43239; 88305; 88313; 88342; J2001; J2704